=== PATIENT | female | born 1970 | race Caucasian/White ===

== ENCOUNTER 2016-05-01 07:29 | Emergency (ER) | payer MEDICARE, OTHER ==
[~2016-05-01] VITALS: Ht 160 cm; Wt 67.0 kg
[~2016-05-01 07:29] MED LIST: Z.0.NO CURRENT MEDS
[2016-05-01 07:33] VITALS: BP 163/114; PULSE 108; RESP 16; TEMP 97; O2SAT 96
--- NOTE | 2016-05-01 07:40 | PD ---
HPI Chief Complaint: Oral / Dental Pain or Problem Time Seen by Provider: 07:35 Travel History International Travel<30 days: No Contact w/Intl Traveler<30days: No Traveled to known affect area: No History of Present Illness HPI The patient is a 45-year-old female who presents to the emergency department from [facility] for dislocated mandible. According to EMS report the patient dislocated her jaw while performing oral sex. The patient was seen at [facility] where they apparently reduce the dislocation, however, the patient dislocated her jaw once again prior to discharge. Therefore, the patient was transferred to [facility] after she was accepted by the oral maxillofacial surgeon, Dr. Oconnor. The patient is currently on Macrobid for UTI. The patient does have a history of previous surgeries including surgery for small bowel obstruction and appendectomy. The patient is allergic to penicillin and Toradol. The patient does smoke but denies alcohol or drugs. The pain is moderate, present bilateral over the TMJ, and there are no alleviating factors. [facility] Past Medical History AAA: No Asthma: No Autoimmune Disease: No COPD: No Diminished Hearing: No : 1 Para: 1 Past Surgical History Appendectomy: Yes Gynecologic Surgery: No Social History Alcohol Use: Yes (HOLIDAYS) Tobacco Use: Yes (1/2 PK DAILY) Allergies-Medications (Allergen,Severity, Reaction): Coded Allergies: Penicillin (Verified Allergy, Severe, 05/01/16) Toradol (Verified Allergy, Severe, 05/01/16) Reported Meds & Prescriptions Reported Meds & Active Scripts Active Reported No Current Meds (Miscellaneous Medication) Misc Review of Systems Except as stated in HPI: all other systems reviewed are Neg HENT: Positive: Other (as noted in the history present illness) Cardiovascular: No: Chest Pain or Discomfort Respiratory: No: Shortness of Breath Gastrointestinal: No: Nausea, Vomiting, Abdominal Pain Genitourinary: Positive: Other (currently be treated with Macrobid for UTI) Physical Exam Narrative GENERAL: Awake, alert, 45-year-old female who appears her stated age and is in no acute respiratory distress. SKIN: Warm and dry. HEAD: Atraumatic. Normocephalic. EYES: Pupils equal and round. No scleral icterus. No injection or drainage. ENT: The patient's mouth is open, she has tenderness bilaterally over the TMJ. She is unable to close her jaw or talk. Tongue is midline. NECK: Trachea midline. No JVD. CARDIOVASCULAR: Regular rate and rhythm. No murmur appreciated. RESPIRATORY: No accessory muscle use. Clear to auscultation. Breath sounds equal bilaterally. GASTROINTESTINAL: Abdomen soft, non-tender, nondistended. No rebound tenderness. MUSCULOSKELETAL: No obvious deformities. No clubbing. No cyanosis. No edema. NEUROLOGICAL: Awake and alert. No obvious cranial nerve deficits. Motor grossly within normal limits. Unable to speak secondary to dislocated jaw. PSYCHIATRIC: Appropriate mood and affect; insight and judgment normal. Data Data Last Documented VS Vital Signs Date Time Temp Pulse Resp B/P Pulse Ox O2 Delivery O2 Flow Rate FiO2 05/01/16 07:33 97.0 108 16 163/114 96 Orders Midazolam Inj (Versed Inj) (05/01/16 08:00) Propofol 200 Mg/20 Ml Inj (Diprivan 200 (05/01/16 08:00) Sodium Chlor 0.9% 1000 Ml Inj (Ns 1000 M (05/01/16 08:00) Midazolam Inj (Versed Inj) (05/01/16 09:00) MDM Medical Decision Making Medical Screen Exam Complete: Yes Emergency Medical Condition: Yes Medical Record Reviewed: Yes Interpretation(s) CT report from [facility] anterior dislocation of the bilateral temporomandibular joints. No acute maxillofacial facial fracture. Differential Diagnosis Differential diagnosis includes dislocated jaw, TMJ, subluxation, fracture. Narrative Course A call was placed to Dr. Oconnor, I discussed the patient with oral maxillary facial surgeon at 7:35 AM, he will evaluate the patient in the emergency department. The patient will be kept nothing by mouth. The patient was evaluated by Dr. Oconnor in the emergency department and underwent conscious sedation using Versed and propofol. The jaw was reduced and the patient had a drawn bra placed. The patient will be discharged home and advised to follow-up on an outpatient basis. Procedures Procedure Narrative After the risks and benefits were discussed the following procedure was performed: MODERATE SEDATION: The patient was placed on a cardiac technologist and pulse oximetry. An ambu bag and suction was immediately available at bedside. The patient was monitored by the nurse. Oxygen saturation, heart rate and blood pressure were monitored. Procedural sedation was acheived using 2.5 mg of Versed and 100 mg of propofol. The patient was observed until awake and alert. Procedural Sedation time in attendance was 25 minutes. Diagnosis Primary Impression: Dislocated mandible Qualified Code: S03.00XD - Dislocated mandible, subsequent encounter Patient Instructions: General Instructions Additional Instructions: Medications as directed. Follow-up with oral maxillary facial surgery on an outpatient basis. Return if symptoms worsen or progress. Med/Other Pt SpecificInfo: Prescription(s) given Scripts Hydrocodone-Acetaminophen Liq 7.5-325 Mg/15 Ml Soln10 Ml PO Q6H PRN (PAIN) #240 ML Ref 0 Prov:Bon Olmedo MD 05/01/16 Disposition: 01 DISCHARGE HOME Condition: Stable Bon Olmedo MD May 01, 2016 07:40
[2016-05-01] MEDS ORDERED: SODIUM CHLOR 0.9% 1000 ML INJ 1,000 ML IV ONE (08:00)
[2016-05-01] MEDS ORDERED: MIDAZOLAM HCL 5 MG/5 ML VIAL IV PUSH ONE (08:00)
[2016-05-01] MEDS ORDERED: PROPOFOL 200 MG/20 ML AMP IV ONE (08:00)
[2016-05-01] MEDS ORDERED: MIDAZOLAM HCL 2 MG/2 ML VIAL IV PUSH ONE (09:00)
[2016-05-01] MEDS ORDERED: HYDR1SOL3 PO (09:41)
[2016-05-01] MEDS ORDERED: MORPHINE SULFATE 4 MG/ML INJ IV PUSH ONE (10:00)
[2016-05-01] MEDS ORDERED: DEXAMETHASONE SOD PHOS 4 MG/ML VIAL IV PUSH ONE (10:00)
[2016-05-01] MEDS ORDERED: ONDANSETRON HCL 4 MG/2 ML VIAL IV PUSH ONE (10:00)
--- NOTE | 2016-05-01 12:44 | MB ---
cc: BIANKA OCONNOR DMD DATE OF CONSULTATION: 05/01/2016 REASON FOR CONSULTATION: His bilateral temporomandibular joint dislocation HISTORY: This is a 45-year-old female who overnight dislocated her bilateral TMJ / temporomandibular joints. I was called by the ER physician and [facility] who told me that this happened because the patient is performing oral sex. She has TMJ treated in 2000 as per the ER physician. The patient reported that she had some procedures done with bilateral joints help reduce this. Based on the note. She had a again dislocated 2002 and to 2006 and it was reduced by Dr. Abdi. The emergency room physician then told he was unable to reduce the fracture so the patient was sent here for evaluation and treatment. I have eeen and examined the patient this morning. The patient's nurse is at bedside. She is alert, awake and oriented x3 in no acute distress. She is communicating by writing. Denies any ear pain. Denies any trauma. PAST MEDICAL HISTORY: Past medical history is denied. ALLERGIES PENICILLIN TORADOL SOCIAL HISTORY: Denies any alcohol or drugs. History of smoking. PAST SURGICAL HISTORY: Appendectomy. MEDICATIONS: Medications right now Macrobid for urinary tract infection. EXAMINATION: Facial bones and temporomandibular joints have been palpated. No gross tenderness to palpation. However the patient is a completely open/locked position. It is firm hard lock position. No signs of any trauma that is noted. No heme that is noted. She has tenderness over the palpation of bilateral maxillary regions. It is a very hard feel. As per the report by the ER physician, the CT scan shows bilateral disk anterior disk displacement / anterior dislocation of the temporomandibular joints. Unable to open up the CT scans here in the ED. There is consistent clinical findings consistent with radiographic reports is consistent that this patient has a dislocation of her bilateral temporomandibular joint. VITAL SIGNS: Pulse is 112, respiration 18, blood pressure oxygen saturation 98%. IMPRESSION AND PLAN This is a 45-year-old female who presents with a bilateral temporomandibular joint dislocation open mouth locked since 01:30 this a.m.. There was unsuccessful attempt to reduce it at [facility] this morning. She is having some discomfort. We will plan to reduce this at bedside. Versed and propofol administered by Dr. Dia the ER physician. Bianka Oconnor DMD [employer]PER[employer]/ /9:31 AM /12:35 PM MTDSandy
[2016-05-02] MEDS ORDERED: DEXAMETHASONE SOD PHOS 4 MG/ML VIAL IV PUSH SCH (09:00)
--- NOTE | 2016-05-05 07:45 | MP ---
cc: BIANKA OCONNOR DMD [facility], DATE OF SURGERY 05/01/2016 PREOPERATIVE DIAGNOSIS Bilateral temporomandibular joint dislocation/opened locked POSTOPERATIVE DIAGNOSES Bilateral temporomandibular joint dislocation/opened locked PROCEDURE Reduction of the temporomandibular joint open lock dislocation in the ER. SURGEON Dr. Oconnor ANESTHESIA Versed and Propofol as per Dr. Mary, please see the separate report COMPLICATIONS None DISPOSITION The patient tolerated the procedure well. INDICATIONS FOR PROCEDURE This is a 45-year-old female who earlier this morning at 1:30 dislocated her bilateral temporomandibular joints secondary to performing oral sex. She was transferred from [facility] because it would not reduce. She has had a longstanding history of this chronic dislocation with the last one being 2006, 2002 and 2000. We plan to reduce is bedside. PROCEDURE IN DETAIL The patient was sitting in a chair with her head against the wall. She underwent Versed and Propofol anesthetic. At this point, both my thumbs were placed at the lower posterior mandibular teeth and my fingers around the mandible and inferiorly. I gently reduced the dislocation by pushing down and then slowly coming and rotating the mandible forward and backwards and slowly the mandible went right into position, nice and smooth. She is able to gently manipulate the mandible open and closed. There is no located dislocation at this point. Bite is in occlusion. A jaw bra was placed around the head down to her chin and secured into position. This is to stabilize the mandible in the closed position. The patient tolerated the procedure well. No complications noted. Bite in the joints has been reduced and bite is in occlusion. Bianka Oconnor DMD RRT/LALA /9:36 AM /7:35 AM LUPE
== END 2016-05-01 11:30 | disposition home or self-care (01) ==
LOC: NEPE 07:29
DX: S03.03XA Dislocation of jaw, bilateral, initial encounter (principal); X58.XXXA Exposure to other specified factors, initial encounter; Y93.89 Activity, other specified
CPT/HCPCS: 21480; 96361; 96374; 96375; 99156; 99283; J1100; J2250; J2270; J2405; J7030